=== PATIENT | male | born 1960 | race Caucasian/White ===

== ENCOUNTER 2017-04-25 13:10 | Inpatient (IN) | payer OTHER ==
[~2017-04-25] VITALS: Ht 172.7 cm; Wt 84.3 kg
[~2017-04-25 13:10] MED LIST: CODACE30 PO; CYCL10 PO; HYDACE5 PO
[2017-04-25 13:42] LABS: BASOPHILS ABSOLUTE AUTO 0.05 K/mm3 (0.00-0.23); BASOPHILS PERCENT AUTO 1 % (0-2); EOSINOPHILS ABSOLUTE AUTO 0.29 K/mm3 (0.00-0.68); EOSINOPHILS PERCENT AUTO 4 % (0-6); Hematocrit 34.5 % (37.0-53.0); Hemoglobin 11.9 g/dL (13.5-17.5); IMMATURE GRAN ABSOLUTE AUTO 0.01 K/mm3 (0.00-0.10); IMMATURE GRAN PERCENT AUTO 0 % (0-1); LYMPHOCYTES ABSOLUTE AUTO 1.29 K/mm3 (0.84-5.20); LYMPHOCYTES PERCENT AUTO 18 % (21-46); MONOCYTES ABSOLUTE AUTO 0.56 K/mm3 (0.16-1.47); MONOCYTES PERCENT AUTO 8 % (4-13); Mean Corpuscular HGB 30.2 pg (26.0-34.0); Mean Corpuscular HGB Conc 34.5 g/dL (31.5-36.5); Mean Corpuscular Volume 88 fL (80-100); Mean Platelet Volume 8.8 fL (9.1-12.4); NEUTROPHILS ABSOLUTE AUTO 4.94 K/mm3 (1.96-9.15); NEUTROPHILS PERCENT AUTO 69 % (41-73); Platelet Count 247 K/mm3 (150-400); RDW Coefficient Variation 12.9 % (11.7-14.2); RDW Standard Deviation 41.8 fL (35.1-46.3); Red Blood Cell Count 3.94 M/mm3 (4.30-5.90); White Blood Cell Count 7.14 K/mm3 (4.00-11.30)
[2017-04-25 14:02] LABS: Albumin/Globulin Ratio 1.1 (0.8-1.8); Bilirubin, Total 0.4 mg/dL (0.1-1.0); Creatinine, Blood 1.8 mg/dL (0.60-1.20); Globulin, Blood 3.8 g/dL (2.2-4.0); Potassium, Blood 3.7 mmol/L (3.5-5.5); Total Protein, Blood 7.8 g/dL (6.4-8.2); Troponin I 0.456 ng/mL (0.000-0.040)
[2017-04-25 16:21] LABS: International Normalized Ratio 0.98; Prothrombin Time Results 10.2 Sec (9.7-11.5)
[2017-04-25 16:29] LABS: Percent Saturation 20.1 % (20.0-50.0)
[2017-04-25 20:05] LABS: Source, Urine Clean Catch
[2017-04-25 20:26] LABS: Bilirubin, Urine Neg (Neg); Blood, Urine Neg (Neg); Glucose Qualitative, Urine Neg (Neg); Ketones, Urine Neg (Neg); Leukocyte Esterase, Urine Neg (Neg); Nitrite, Urine Neg (Neg); Protein, Urine Neg (Neg); Urobilinogen, Urine NORM (Normal)
[2017-04-25 20:36] LABS: Appearance, Urine Clear (Clear); Color, Urine Yellow (P-Yellow)
[2017-04-26 01:40] LABS: BASOPHILS ABSOLUTE AUTO 0.04 K/mm3 (0.00-0.23); BASOPHILS PERCENT AUTO 1 % (0-2); EOSINOPHILS PERCENT AUTO 5 % (0-6); Hematocrit 31.9 % (37.0-53.0); Hemoglobin 11.2 g/dL (13.5-17.5); IMMATURE GRAN ABSOLUTE AUTO 0.02 K/mm3 (0.00-0.10); IMMATURE GRAN PERCENT AUTO 0 % (0-1); LYMPHOCYTES PERCENT AUTO 25 % (21-46); MONOCYTES ABSOLUTE AUTO 0.55 K/mm3 (0.16-1.47); MONOCYTES PERCENT AUTO 9 % (4-13); Mean Corpuscular HGB 30.7 pg (26.0-34.0); Mean Corpuscular HGB Conc 35.1 g/dL (31.5-36.5); Mean Corpuscular Volume 87 fL (80-100); Mean Platelet Volume 8.7 fL (9.1-12.4); NEUTROPHILS ABSOLUTE AUTO 3.58 K/mm3 (1.96-9.15); NEUTROPHILS PERCENT AUTO 60 % (41-73); Platelet Count 230 K/mm3 (150-400); RDW Coefficient Variation 12.7 % (11.7-14.2); RDW Standard Deviation 41.3 fL (35.1-46.3); Red Blood Cell Count 3.65 M/mm3 (4.30-5.90); White Blood Cell Count 5.99 K/mm3 (4.00-11.30)
[2017-04-26 02:30] LABS: Alanine Aminotransfer (ALT/SGP 22 U/L (12-78); Albumin, Blood 3.6 g/dL (3.4-5.0); Alk Phos 87 U/L (50-136); Anion Gap 8 mmol/L (6-16); Aspartate Aminotrans (AST/SGOT 14 U/L (12-37); Bilirubin, Total 0.4 mg/dL (0.1-1.0); Blood Urea Nitrogen 28 mg/dL (8-24); Bun/Creatinine Ratio 14.6 (12.0-20.0); CHOL/HDL RATIO 4.2; CO2, Blood 28 mmol/L (21-32); Calcium, Blood 9.3 mg/dL (8.5-10.1); Chloride, Blood 105 mmol/L (98-108); Cholesterol 217 mg/dL (50-200); Creatinine, Blood 1.92 mg/dL (0.60-1.20); Globulin, Blood 3.5 g/dL (2.2-4.0); Glomerular Filtration Rate 39 (60-); Glucose, Blood 91 mg/dL (70-99); HDL Cholesterol 52 mg/dL (>39); LDL/HDL RATIO 2.8; Low Density Lipoprotein Chol 144 mg/dL (0-110); Potassium, Blood 3.7 mmol/L (3.5-5.5); Sodium, Blood 141 mmol/L (136-145); Total Protein, Blood 7.1 g/dL (6.4-8.2); Triglycerides 107 mg/dL (30-160); Very Low Density Lipoprot Chol 21 mg/dL (6-32)
[2017-04-27 05:15] LABS: Hematocrit 33.2 % (37.0-53.0); Hemoglobin 11.2 g/dL (13.5-17.5)
[2017-04-27 05:53] LABS: Albumin, Blood 3.5 g/dL (3.4-5.0); Anion Gap 8 mmol/L (6-16); Blood Urea Nitrogen 29 mg/dL (8-24); Bun/Creatinine Ratio 16.4 (12.0-20.0); CO2, Blood 22 mmol/L (21-32); Chloride, Blood 111 mmol/L (98-108); Creatinine, Blood 1.77 mg/dL (0.60-1.20); Glomerular Filtration Rate 42 (60-); Glucose, Blood 95 mg/dL (70-99); Phosphorus, Blood 2.4 mg/dL (2.5-4.9); Potassium, Blood 3.6 mmol/L (3.5-5.5); Sodium, Blood 141 mmol/L (136-145)
[2017-04-28 05:53] LABS: BASOPHILS ABSOLUTE AUTO 0.03 K/mm3 (0.00-0.23); BASOPHILS PERCENT AUTO 0 % (0-2); EOSINOPHILS PERCENT AUTO 4 % (0-6); Hematocrit 31.5 % (37.0-53.0); Hemoglobin 10.6 g/dL (13.5-17.5); IMMATURE GRAN ABSOLUTE AUTO 0.01 K/mm3 (0.00-0.10); IMMATURE GRAN PERCENT AUTO 0 % (0-1); LYMPHOCYTES ABSOLUTE AUTO 1.19 K/mm3 (0.84-5.20); LYMPHOCYTES PERCENT AUTO 17 % (21-46); MONOCYTES ABSOLUTE AUTO 0.87 K/mm3 (0.16-1.47); MONOCYTES PERCENT AUTO 12 % (4-13); Mean Corpuscular HGB 30.5 pg (26.0-34.0); Mean Corpuscular HGB Conc 33.7 g/dL (31.5-36.5); Mean Platelet Volume 9.2 fL (9.1-12.4); NEUTROPHILS ABSOLUTE AUTO 4.61 K/mm3 (1.96-9.15); NEUTROPHILS PERCENT AUTO 66 % (41-73); Platelet Count 227 K/mm3 (150-400); RDW Coefficient Variation 13.4 % (11.7-14.2); RDW Standard Deviation 44.5 fL (35.1-46.3); Red Blood Cell Count 3.47 M/mm3 (4.30-5.90); White Blood Cell Count 7.01 K/mm3 (4.00-11.30)
[2017-04-28 05:57] LABS: Mean Corpuscular Volume 91 fL (80-100)
[2017-04-28 06:18] LABS: Albumin, Blood 3.3 g/dL (3.4-5.0); Anion Gap 7 mmol/L (6-16); Blood Urea Nitrogen 30 mg/dL (8-24); Bun/Creatinine Ratio 17.3 (12.0-20.0); CO2, Blood 23 mmol/L (21-32); Calcium, Blood 8.9 mg/dL (8.5-10.1); Chloride, Blood 111 mmol/L (98-108); Creatinine, Blood 1.73 mg/dL (0.60-1.20); Glomerular Filtration Rate 43 (60-); Glucose, Blood 84 mg/dL (70-99); Phosphorus, Blood 2.8 mg/dL (2.5-4.9); Potassium, Blood 4.1 mmol/L (3.5-5.5); Sodium, Blood 141 mmol/L (136-145)
[2017-04-28] MEDS ORDERED: Aspirin325 MG PO (10:56)
[2017-04-28] MEDS ORDERED: METO50 PO (10:56)
[2017-04-28] MEDS ORDERED: ATOR40TA PO (10:56)
[2017-04-28] MEDS ORDERED: CLOP75 PO (10:57)
[2017-04-28] MEDS ORDERED: Nitrostat0.4 MG SL (10:59)
[2017-04-28] MEDS ORDERED: NAC600 MG PO (11:03)
== END 2017-04-28 12:57 | disposition home or self-care (01) | DRG 247 ==
LOC: ER 13:10 → PCU 15:35 → ER 16:40 → PCU 17:50
PROVIDERS: Emergency Medicine; Family Medicine; Internal Medicine
PROC: 027035Z Dilation of Coronary Artery, One Artery with Two Drug-eluting Intraluminal Devices, Percutaneous Approach (ICD-10-PCS; principal; 2017-04-27)
PROC: B240ZZ3 Ultrasonography of Single Coronary Artery, Intravascular (ICD-10-PCS; 2017-04-27)
PROC: 4A023N7 Measurement of Cardiac Sampling and Pressure, Left Heart, Percutaneous Approach (ICD-10-PCS; 2017-04-27)
PROC: B2111ZZ Fluoroscopy of Multiple Coronary Arteries using Low Osmolar Contrast (ICD-10-PCS; 2017-04-27)
PROC: B2151ZZ Fluoroscopy of Left Heart using Low Osmolar Contrast (ICD-10-PCS; 2017-04-27)
DX: I21.4 Non-ST elevation (NSTEMI) myocardial infarction (principal); N17.9 Acute kidney failure, unspecified; N18.3 Chronic kidney disease, stage 3 (moderate); E78.5 Hyperlipidemia, unspecified; I25.10 Atherosclerotic heart disease of native coronary artery without angina pectoris; R00.1 Bradycardia, unspecified; I12.9 Hypertensive chronic kidney disease with stage 1 through stage 4 chronic kidney disease, or unspecified chronic kidney disease; D63.1 Anemia in chronic kidney disease; D86.9 Sarcoidosis, unspecified; Z85.820 Personal history of malignant melanoma of skin
CPT/HCPCS: 36415; 71046; 76770; 78452; 80053; 80061; 80069; 81003; 82164; 82728; 83540; 83550; 83880; 84484; 85014; 85018; 85025; 85347; 85610; 85730; 92978; 93005; 93010; 93017; 93306; 93454; 96365; 96375; 99152; 99153; 99285; A9500; C1725; C1753; C1769; C1874; C1894; C9600; J1200; J1644; J2250; J3010; J7030; J7060; Q9967

== ENCOUNTER 2017-05-04 08:07 | Day surgery (SDC) | payer OTHER ==
[~2017-05-04] VITALS: Ht 172.7 cm; Wt 84.0 kg
[~2017-05-04 08:07] MED LIST changes: +ATOR40TA PO; +Aspirin325 MG PO; +CLOP75 PO; +METO50 PO; +NAC600 MG PO; +Nitrostat0.4 MG SL
[2017-05-04 08:47] LABS: Hematocrit 34.4 % (37.0-53.0); Hemoglobin 11.9 g/dL (13.5-17.5); Mean Corpuscular HGB 30.4 pg (26.0-34.0); Mean Corpuscular HGB Conc 34.6 g/dL (31.5-36.5); Mean Platelet Volume 9.2 fL (9.1-12.4); Platelet Count 295 K/mm3 (150-400); RDW Coefficient Variation 12.6 % (11.7-14.2); RDW Standard Deviation 40.4 fL (35.1-46.3); Red Blood Cell Count 3.91 M/mm3 (4.30-5.90); White Blood Cell Count 6.41 K/mm3 (4.00-11.30)
[2017-05-04 08:52] LABS: Mean Corpuscular Volume 88 fL (80-100)
[2017-05-04 09:00] LABS: International Normalized Ratio 1.03; Prothrombin Time Results 10.7 Sec (9.7-11.5)
[2017-05-04 09:08] LABS: Bun/Creatinine Ratio 16.7 (12.0-20.0); Calcium, Blood 9.3 mg/dL (8.5-10.1); Creatinine, Blood 1.56 mg/dL (0.60-1.20); Potassium, Blood 3.6 mmol/L (3.5-5.5)
[2017-05-05 04:09] LABS: BASOPHILS ABSOLUTE AUTO 0.06 K/mm3 (0.00-0.23); BASOPHILS PERCENT AUTO 1 % (0-2); EOSINOPHILS ABSOLUTE AUTO 0.24 K/mm3 (0.00-0.68); EOSINOPHILS PERCENT AUTO 3 % (0-6); Hematocrit 30.8 % (37.0-53.0); Hemoglobin 10.7 g/dL (13.5-17.5); IMMATURE GRAN ABSOLUTE AUTO 0.03 K/mm3 (0.00-0.10); IMMATURE GRAN PERCENT AUTO 0 % (0-1); LYMPHOCYTES ABSOLUTE AUTO 0.85 K/mm3 (0.84-5.20); LYMPHOCYTES PERCENT AUTO 11 % (21-46); MONOCYTES ABSOLUTE AUTO 0.76 K/mm3 (0.16-1.47); MONOCYTES PERCENT AUTO 10 % (4-13); Mean Corpuscular HGB 30.3 pg (26.0-34.0); Mean Corpuscular HGB Conc 34.7 g/dL (31.5-36.5); Mean Corpuscular Volume 87 fL (80-100); Mean Platelet Volume 9.3 fL (9.1-12.4); NEUTROPHILS ABSOLUTE AUTO 5.66 K/mm3 (1.96-9.15); NEUTROPHILS PERCENT AUTO 74 % (41-73); Platelet Count 231 K/mm3 (150-400); RDW Coefficient Variation 12.8 % (11.7-14.2); RDW Standard Deviation 40.6 fL (35.1-46.3); Red Blood Cell Count 3.53 M/mm3 (4.30-5.90)
[2017-05-05 04:35] LABS: Bun/Creatinine Ratio 13.7 (12.0-20.0); Creatinine, Blood 1.31 mg/dL (0.60-1.20); Potassium, Blood 3.5 mmol/L (3.5-5.5)
[2017-05-05] MEDS ORDERED: AMLO5 PO (11:51)
== END 2017-05-05 12:55 | disposition home or self-care (01) ==
LOC: MHTC 08:07 → PCU 11:16 → MHTC 05-05 12:55
PROVIDERS: Internal Medicine Interventional Cardiology
PROC: 027034Z Dilation of Coronary Artery, One Artery with Drug-eluting Intraluminal Device, Percutaneous Approach (ICD-10-PCS; principal; 2017-05-04)
PROC: B211YZZ Fluoroscopy of Multiple Coronary Arteries using Other Contrast (ICD-10-PCS; principal; 2017-05-04)
PROC: B241ZZ3 Ultrasonography of Multiple Coronary Arteries, Intravascular (ICD-10-PCS; principal; 2017-05-04)
DX: I25.10 Atherosclerotic heart disease of native coronary artery without angina pectoris (principal); I25.2 Old myocardial infarction; I10 Essential (primary) hypertension; E78.5 Hyperlipidemia, unspecified; N19 Unspecified kidney failure
CPT/HCPCS: 36415; 80048; 85025; 85027; 85610; 92978; 93005; 93010; 99152; 99153; C1725; C1753; C1769; C1874; C1894; C9600; J1644; J2250; J3010; J7030; Q9967

== ENCOUNTER 2018-12-20 17:38 | Emergency (ER) | payer OTHER ==
[~2018-12-20] VITALS: Ht 172.7 cm; Wt 76.2 kg
[~2018-12-20 17:38] MED LIST changes: +AMLO5 PO
== END 2018-12-20 18:37 | disposition left against medical advice (07) ==
LOC: ER 17:38
DX: Z53.21 Procedure and treatment not carried out due to patient leaving prior to being seen by health care provider (principal)

== ENCOUNTER 2018-12-22 07:44 | Day surgery (SDC) | payer OTHER ==
[2018-12-22 08:27] LABS: Albumin, Blood 3.5 g/dL (3.4-5.0); Anion Gap 6 mmol/L (6-16); Blood Urea Nitrogen 47 mg/dL (8-24); Bun/Creatinine Ratio 15.5 (12.0-20.0); CO2, Blood 26 mmol/L (21-32); Calcium, Blood 10.5 mg/dL (8.5-10.1); Chloride, Blood 110 mmol/L (98-108); Creatinine, Blood 3.04 mg/dL (0.60-1.20); Glomerular Filtration Rate 23 (60-); Glucose, Blood 124 mg/dL (70-99); Phosphorus, Blood 2.8 mg/dL (2.5-4.9); Potassium, Blood 3.9 mmol/L (3.5-5.5); Sodium, Blood 142 mmol/L (136-145)
[2018-12-22] MEDS ORDERED: ASPI81CH PO (08:47)
== END 2018-12-22 10:20 | disposition home or self-care (01) ==
LOC: ATC 07:44
PROVIDERS: Internal Medicine
DX: N17.9 Acute kidney failure, unspecified (principal); N18.9 Chronic kidney disease, unspecified; D63.1 Anemia in chronic kidney disease; Z79.899 Other long term (current) drug therapy; Z79.82 Long term (current) use of aspirin
CPT/HCPCS: 80069; 96360; 96361; J7030

== ENCOUNTER → 2018-12-31 | Outpatient (CLI) | payer OTHER ==
[~2018-12-31] MED LIST changes: +ASPI81CH PO
[2018-12-31 19:04] LABS: Sodium, Urine 57 mmol/L (20-110)
[2018-12-31 19:09] LABS: Calcium, Urine 8.3 mg/dL (< 17.5); Calcium, Urine Calculation 232.4 mg/24hrs (42.0-353.0)
== END | disposition home or self-care (01) ==
LOC: LAB SHORT 17:09 → OLS 17:09
PROVIDERS: Internal Medicine
DX: E83.52 Hypercalcemia (principal)
CPT/HCPCS: 81050; 82340; 84300

== ENCOUNTER 2024-06-27 10:00 | Observation (INO) | payer OTHER ==
[~2024-06-27] VITALS: Ht 172.7 cm; Wt 76.4 kg
[2024-06-27] MEDS ORDERED: Nitroglycerin 0.4 MG SUBL SL PRN (10:10)
[2024-06-27 10:31] LABS: BASOPHILS ABSOLUTE AUTO 0.07 K/mm3 (0.00-0.23); BASOPHILS PERCENT AUTO 1 % (0-2); EOSINOPHILS ABSOLUTE AUTO 0.48 K/mm3 (0.00-0.68); EOSINOPHILS PERCENT AUTO 7 % (0-6); Hematocrit 44.9 % (37.0-53.0); Hemoglobin 15.5 g/dL (13.5-17.5); IMMATURE GRAN ABSOLUTE AUTO 0.02 K/mm3 (0.00-0.10); IMMATURE GRAN PERCENT AUTO 0 % (0-1); LYMPHOCYTES ABSOLUTE AUTO 1.55 K/mm3 (0.84-5.20); LYMPHOCYTES PERCENT AUTO 21 % (21-46); MONOCYTES ABSOLUTE AUTO 0.86 K/mm3 (0.16-1.47); MONOCYTES PERCENT AUTO 12 % (4-13); Mean Corpuscular HGB 30.6 pg (26.0-34.0); Mean Corpuscular HGB Conc 34.5 g/dL (31.5-36.5); Mean Corpuscular Volume 89 fL (80-100); NEUTROPHILS PERCENT AUTO 59 % (41-73); Platelet Count 228 K/mm3 (150-400); RDW Coefficient Variation 13.2 % (11.7-14.2); RDW Standard Deviation 42.7 fL (35.1-46.3); Red Blood Cell Count 5.07 M/mm3 (4.30-5.90); White Blood Cell Count 7.28 K/mm3 (4.00-11.30)
[2024-06-27 10:49] LABS: Albumin, Blood 3.9 g/dL (3.4-5.0); Bilirubin, Total 0.4 mg/dL (0.1-1.0); Bun/Creatinine Ratio 22.7 (12.0-20.0); Calcium, Blood 8.9 mg/dL (8.5-10.1); Creatinine, Blood 1.1 mg/dL (0.60-1.20); Globulin, Blood 3.8 g/dL (2.2-4.0); Potassium, Blood 3.8 mmol/L (3.5-5.5); Total Protein, Blood 7.7 g/dL (6.4-8.2)
[2024-06-27] MEDS ORDERED: TraZODone HCl 50 MG Tab PO PRN (12:20)
[2024-06-27] MEDS ORDERED: Prochlorperazine Edisylate 10 mg Vial IV PRN (12:20)
[2024-06-27] MEDS ORDERED: Magnesium Hydroxide Conc 10 ML UDC PO PRN (12:20)
[2024-06-27] MEDS ORDERED: FLU VACC TS2024-25(6MOS UP)/PF 45 MCG/0.5 ML SYRINGE IM SCH (12:20)
[2024-06-27 12:21] LABS: International Normalized Ratio 0.96; Prothrombin Time Results 10.3 Sec (9.7-11.5)
[2024-06-27] MEDS ORDERED: Bisacodyl 10 MG Supp PR PRN (12:25)
[2024-06-27] MEDS ORDERED: Heparin Sodium 5000 Units/ML 1ML MDV IV ONE (12:30)
[2024-06-27] MEDS ORDERED: Heparin Sodium,Porcine/0.5 NS 500 ML IV SCH (12:30)
[2024-06-27 13:45] VITALS: BP 140/92
--- NOTE | 2024-06-27 14:12 | NUR ---
PATIENT ARRIVED TO FLOOR JUST THIS RN WAS RETURNING TO FLOOR FROM LUNCH. ACCOMPANIED BY , CUATE, AND DAUGHTER, TAY. WEARING GLASSES. IN NO ACUTE DISTRESS. SALINE LOCKED RIGHT AC, HEP GTTs @ 23.7 IN RFA. LUNG AND HEART SOUNDS WNL. TELE LEADS IN PLACE. NO CURRENT C/O ANGINA OR SOB.
[2024-06-27 16:17] VITALS: BP 141/84
[2024-06-27] MEDS ORDERED: AmLODIPine Besylate 5 MG Tab PO SCH (17:16)
[2024-06-27] MEDS ORDERED: Atorvastatin 40 MG Tab PO ONE (18:15)
[2024-06-27] MEDS ORDERED: Aspirin 325 MG Tab PO ONE (18:15)
[2024-06-27] MEDS ORDERED: Dose Adjust by Pharmacy XX STA (19:43)
[2024-06-27 19:57] VITALS: BP 140/85
--- NOTE | 2024-06-27 20:15 | NUR ---
END OF SHIFT SUMMARY: A&Ox4. PLEASANT AND COOPERATIVE WITH CARE. CALLS APPROPRIATELY AND IS ABLE TO ADVOCATE NEEDS EFFECTIVELY. INDEPENDENT c AMBULATION. CONTINENT OF BOWEL AND BLADDER. FAMILY @ BEDSIDE SINCE ADMIT. HEPARIN GTTs GOING. ECHO COMPLETED c TROP REDRAW DIRECTLY AFTERWARDS RESULTING IN ELEVATED TROPS. PROVIDER NOTIFIED. VASCULAR SURGEON TO BEDSIDE; PLANS FOR ANGIOGRAM TOMORROW. NPO AFTER MIDNIGHT. NO FURTHER C/O ANGINA OR SOB. NITRO TABS IN DRAWER. TELE RUNNING SINUS BREADY BETWEN 50s AND 60s. BED IN LOWEST POSITION, CALL LIGHT WITHIN REACH, ALL NEEDS MET. REPORT TO ONCOMING NURSE.
[2024-06-27] MEDS ORDERED: Famotidine 20 MG Tab PO SCH (21:00)
[2024-06-27] MEDS ORDERED: Lactobacil 2-S.Thermo-Bifido 1 1 Cap PO SCH (21:00)
[2024-06-27] MEDS ORDERED: Metoprolol Tartrate 25 MG Tab PO SCH (21:00)
[2024-06-27 23:45] VITALS: BP 155/93
[2024-06-27 23:51] VITALS: BP 142/93
[2024-06-28] VITALS (11 sets, daily range): BP systolic 117–169; BP diastolic 76–99
--- NOTE | 2024-06-28 05:49 | NUR ---
FRUIT CUTTER SUMMARY PT HAD NO CHEST PAIN OVERNIGHT AND WAS ASKED MULTIPLE TIMES. HE HAS BEEN INSTRUCTED TO CALL US IMMEDIATELY IF HIS CHEST PAIN COMES BACK. HE HAS BEEN NPO SINCE MIDNIGHT AND IS ON A CONTINUOUS HEPARIN GTT. SINUS LUBNA TO NSR IN THE 40S-60S. PT WITH HEART RATES IN THE 40S WITH SLEEP BUT IS NOT TAKING A BETA ABRAHAM OR ANY OTHER MEDICATION THAT WOULD LOWER HIS HEART RATE. HE DENIES SYMPTOMS RELATED TO THIS AND IS ABLE TO GET UP AND USE THE BATHROOM WITH NO DIZZINESS, SOB, OR CHEST PAIN. PT GETTING IVF BOLUS PER MAR PRIOR TO ANGIOGRAM THIS MORNING. SBPS IN THE 140S-150S, IMPROVED FROM ADMISSION YESTERDAY.
[2024-06-28] MEDS ORDERED: NS 500 ML IV SCH (06:00)
[2024-06-28 07:13] LABS: Hematocrit 43.9 % (37.0-53.0); Hemoglobin 15.1 g/dL (13.5-17.5); Mean Corpuscular HGB 30.8 pg (26.0-34.0); Mean Corpuscular HGB Conc 34.4 g/dL (31.5-36.5); Mean Corpuscular Volume 89 fL (80-100); Platelet Count 211 K/mm3 (150-400); RDW Coefficient Variation 13.3 % (11.7-14.2); RDW Standard Deviation 43.8 fL (35.1-46.3); Red Blood Cell Count 4.91 M/mm3 (4.30-5.90); White Blood Cell Count 5.06 K/mm3 (4.00-11.30)
[2024-06-28 07:23] LABS: Alanine Aminotransfer (ALT/SGP 23 U/L (12-78); Albumin, Blood 3.3 g/dL (3.4-5.0); Alk Phos 90 U/L (50-136); Anion Gap 7 mmol/L (3-11); Aspartate Aminotrans (AST/SGOT 22 U/L (12-37); Bilirubin, Total 0.4 mg/dL (0.1-1.0); Blood Urea Nitrogen 25 mg/dL (8-24); Bun/Creatinine Ratio 18.9 (12.0-20.0); CHOL/HDL RATIO 3.3; CO2, Blood 27 mmol/L (21-32); Calcium, Blood 8.7 mg/dL (8.5-10.1); Chloride, Blood 110 mmol/L (98-108); Cholesterol 207 mg/dL (50-200); Creatinine, Blood 1.32 mg/dL (0.60-1.20); Globulin, Blood 3.2 g/dL (2.2-4.0); Glomerular Filtration Rate 60 (60-); Glucose, Blood 106 mg/dL (70-99); HDL Cholesterol 63 mg/dL (>39); Low Density Lipoprotein Chol 129 mg/dL (0-110); Magnesium, Blood 2.1 mg/dL (1.6-2.4); Potassium, Blood 3.9 mmol/L (3.5-5.5); Sodium, Blood 140 mmol/L (136-145); Total Protein, Blood 6.5 g/dL (6.4-8.2); Triglycerides 76 mg/dL (30-160); Very Low Density Lipoprot Chol 15 mg/dL (6-32)
[2024-06-28] MEDS ORDERED: Dose Adjust by Pharmacy XX STA (08:46)
[2024-06-28] MEDS ORDERED: Enoxaparin 40 MG/0.4 ML SYR SC SCH (09:00)
[2024-06-28] MEDS ORDERED: Verapamil HCL 2.5 MG/ML 2ML Injection ONE (10:50)
[2024-06-28] MEDS ORDERED: Nitroglycerin 2 MG/20 ML BTL ONE (10:52)
[2024-06-28] MEDS ORDERED: Heparin Sodium 1000 Units/ML 10ML MDV ONE ×4 (10:52→15:13)
[2024-06-28] MEDS ORDERED: NS 250 ML IV ONE ×2 (10:52→13:10)
[2024-06-28] MEDS ORDERED: NS 1,000 ML IV ONE ×3 (10:52→14:56)
[2024-06-28] MEDS ORDERED: FentaNYL Citrate 50 MCG/ML 2 ML Injection ONE (13:09)
[2024-06-28] MEDS ORDERED: Midazolam HCl 1MG / ML 2ML Vial ONE (13:09)
[2024-06-28] MEDS ORDERED: HydrALAZINE HCl 20 MG / ML 1ML Vial ONE (13:57)
[2024-06-28] MEDS ORDERED: Atropine Sulfate 0.1 MG/ML 10ML SYR ONE ×2 (14:14→14:16)
[2024-06-28] MEDS ORDERED: Phenylephrine HCl 100 MCG/ML-NS 10MLSYR (1MG/10ML) ONE (14:16)
[2024-06-28] MEDS ORDERED: Ticagrelor 90 MG TABLET ONE (14:41)
[2024-06-28] MEDS ORDERED: NS 500 ML IV ONE (15:13)
--- NOTE | 2024-06-28 15:31 | NUR ---
TRANSFER: PT TAKEN FOR ANGIOGRAM AROUND 1320. PT HAS NOT HAD ANY CHEST PAIN THIS AM. PT MADE NPO AFTER BREAKFAST. REPORT GIVEN TO RACHEL PHIPPS. PT TO TRANSFER TO ROOM PCU 15 POST ANGIOGRAM.
--- NOTE | 2024-06-28 16:45 | NUR ---
arrival to [facility]cu this rn assumed care at 1631 when patient arrived from heart center. vital signs stable. tele sinus arrhythmia/sinus rhythm 50-60s. spo2 >90% on room air. patient is alert and oriented x4. neuro is intact. patient is able to make needs known and uses call light appropriately. patien denies pain, chest pain/pressure or shortness of breath. see shift assessment for further detials. patient has right radial site with tr band in place with 12cc of air in it. right radial site is soft nontender no hematoma or bleeding.
[2024-06-28] MEDS ORDERED: NS 1,000 ML IV SCH (16:50)
--- NOTE | 2024-06-28 18:06 | NUR ---
shift summary vital signs remain stable. right radial site with tr band in place and 12cc of air in it, and able to remove air at 1830 per orders. right radial site is soft nontender no bleeding or hematoma. no acute changes
--- NOTE | 2024-06-28 22:30 | NUR ---
SHIFT SUMMARY PT HAS TR BAND IN PLACE FROM ANGIOGRAM THIS AFTERNOON. AT START OF SHIFT (1829), BAND HAD 10ML. 1929, REMOVED 2ML. 1999 REMOVED 2ML. 2029 LOAN EXAMINER REMOVED 2ML. 2099, THIS RN REMOVED 2ML, BUT SITE IMMEDIATELY BEGAN TO OOZE. REPLACED 2ML. 2139, REMOVED 2ML. 2141 UP TO BATHROOM-425ML. 2211 LAST 2ML REMOVED.
--- NOTE | 2024-06-29 00:06 | NUR ---
ASSUMPTION OF CARE NOTE. THIS RN TOOKO OVER CARE FROM PREVIOUS RN @ APPROXIMATELY 2245. PT RESTING COMFORTABLY AT TIME OF ENTERING ROOM. TR BAND FULLY RECOVERED/REMOVED @ 2330. SITE C/D/I ASIDE FROM SOME DRIED BLOOD FROM OOZING EARLIER IN DAY. SITE SOFT, NO REPORTED PAIN OUTSIDE OF MILD TENDERNESS. TEGADERM AND BACKBOARD APPLIED. VITALS STABLE. RUNNING SINUS ON TELE WITH RATE IN THE 60s-70s. BED LOCKED IN LOWEST POSITION. CALL LIGHT LEFT WITHIN REACH. CONTINUING TO MONITOR.
--- NOTE | 2024-06-29 03:13 | NUR ---
TRANSFERRING CARE TO BUILDING MAINTENANCE SUPERVISOR. SHIFT HAS BEEN UNREMARKABLE WITH THIS RN. PT CALLS APPROPRIATELY, ABLE TO MAKE NEEDS KNOWN, HAS BEEN ABLE TO REST COMFORTABLY. DENIES PAIN OUTSIDE OF MILD TENDERNESS ASSOCIATED WITH ANGIO SITE. CONTINUES TO RUN SINUS ON TELE. VITALS STABLE. RWR SITE WNL WITH TEGADERM C/D/I AND BACKBOARD IN PLACE. BED LOCKED IN LOWEST POSITION. CALLLIGHT LEFT WITHIN REACH. CONTINUING TO MONITOR.
[2024-06-29 03:54] VITALS: BP 154/89
[2024-06-29] MEDS ORDERED: Aspirin 81 MG Chew PO SCH (09:00)
[2024-06-29] MEDS ORDERED: prasugrel HCL 10 MG TABLET PO ONE (09:00)
[2024-06-29] MEDS ORDERED: AMLO5 PO (11:28)
[2024-06-29] MEDS ORDERED: EFFIENT10 MG PO (11:28)
[2024-06-29] MEDS ORDERED: ATOR80 PO (11:29)
--- NOTE | 2024-06-29 12:27 | NUR ---
assumed care of pt a/o x4 very pleasent and cooperative with care, no c/o chest pain while up and ambulating and is awaiting discharge. right wrist stabalized using wrist board, pt aware to treat as a broken wrist to prevent injury to site. both cardiology and primary into see pt and discharge orders given. new antiplatelet medication given along with edu. discharge edu given as well pt stated he had no questions and would follow up as directed. ivs removed and pt discharged, with daughter
[2024-06-30] MEDS ORDERED: prasugrel HCL 10 MG TABLET PO SCH (09:00)
[2024-06-30] MEDS ORDERED: AmLODIPine Besylate 5 MG Tab PO SCH (09:00)
== END 2024-06-29 11:48 | disposition home or self-care (01) ==
LOC: ER 10:00 → MEDS 12:43 → PCU 06-28 13:42
PROVIDERS: Emergency Medicine; Pharmacist; ADMIT Hospitalist
DX: I21.4 Non-ST elevation (NSTEMI) myocardial infarction (principal); I25.118 Atherosclerotic heart disease of native coronary artery with other forms of angina pectoris; E78.5 Hyperlipidemia, unspecified; I12.9 Hypertensive chronic kidney disease with stage 1 through stage 4 chronic kidney disease, or unspecified chronic kidney disease; N18.2 Chronic kidney disease, stage 2 (mild); D86.9 Sarcoidosis, unspecified
CPT/HCPCS: 36415; 71045; 76937; 80053; 80061; 83036; 83735; 84484; 85025; 85027; 85347; 85520; 85610; 85730; 92978; 92979; 93005; 93010; 93306; 93458; 93571; 93572; 96361; 96365; 96366; 99152; 99153; 99285-25; A9270; C1725; C1753; C1769; C1874; C1887; C1894; C9600; C9601; G0378; J0360; J0461; J1644; J2250; J2371; J3010; J7030; J7040; J7050; Q9967